=== PATIENT | female | born 1975 | race Caucasian/White ===

== ENCOUNTER 2017-01-10 09:29 | Emergency (ER) | payer BC, MEDICAID, OTHER ==
[2017-01-10 09:47] VITALS: BP 153/82
[2017-01-10] MEDS ORDERED: Sodium Chloride 0.9% 1,000 ML IV ONE (10:46)
--- NOTE | 2017-01-10 12:56 | EDM.PDOC ---
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 This started ten days ago which was shortly after seeing her PCP following a heavy period. Hg was 9.9 at that time and Dimple started her on progesterone. The last 3 days the bleeding has increased. She has gone through 15 large pads in the past 5 days. She is a little lightheaded when she stands up. No fever, some abdominal cramping. She says she is not planning on having any more kids and would consider permanent procedures for this at this point. She doesn't take blood thinners. 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) Lower Abdominal Pain Score (Numeric/FACES): 3 - Related Data Allergies Allergy/AdvReac Type Severity Reaction Status Date / Time Sulfa (Sulfonamide Allergy Nausea Verified 01/10/17 09:47 Antibiotics) sulfamethoxazole Allergy Rash Verified 01/10/17 09:47 [From Bactrim] trimethoprim [From Bactrim] Allergy Rash Verified 01/10/17 09:47 Home Meds: Home Meds Ferrous Sulfate [Iron] 1 tab PO BID 01/10/17 [History] Norethindrone Acetate [Norethindrone AC ([place])] 1 tab PO BEDTIME 01/10/17 [ History] Past Medical History Genitourinary History: Reports: Renal calculus 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: 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, Musculoskeletal History: Reports: None Hematologic History: Reports: Anemia - Infectious Disease History Infectious Disease History: Reports: Chicken pox - Past Surgical History Head Surgeries/Procedures: Reports: None GI Surgical History: Reports: Appendectomy, Cholecystectomy Female Surgical History: Reports: section, Tubal ligation Musculoskeletal Surgical History: Reports: Other (see below) Other Musculoskeletal Surgeries/Procedures:: ankle surgery for torn ligament Dermatological Surgical History: Reports: None Social & Family History - Family History Family Medical History: Noncontributory - Tobacco Use Smoking Status *Q: Current Every Day Smoker Years of Tobacco use: 24 Packs/Tins Daily: 1 Used Tobacco, but Quit: No Second Hand Smoke Exposure: No - Caffeine Use Caffeine Use: Reports: Coffee, Soda - Recreational Drug Use Recreational Drug Use: No ED ROS GENERAL - Review of Systems Review Of Systems: ROS reveals no pertinent complaints other than HPI. ED EXAM, GENERAL - Physical Exam Exam: See Below Exam Limited By: No limitations General Appearance: alert, WD/WN, no apparent distress Eye Exam: bilateral eye: EOMI, normal inspection, PERRL Ears: normal external exam, hearing grossly normal Nose: normal inspection Throat/Mouth: Normal inspection Head: atraumatic, normocephalic Neck: full range of motion Respiratory/Chest: no respiratory distress, lungs clear, normal breath sounds Cardiovascular: regular rate, rhythm, no murmur GI/Abdominal: soft, tender (mildly in middle abdomen) Back Exam: No: CVA tenderness (L), CVA tenderness (R) Extremities: normal inspection, normal range of motion Neurological: alert, oriented, CN II-XII intact, normal cognition, normal gait, no motor/sensory deficits Psychiatric: normal affect, normal mood Skin Exam: Warm, Dry, Intact, Normal color, No rash Course - Vital Signs Last Recorded V/S: Last Vital Signs Temp 98.5 F 01/10/17 09:44 Pulse 76 01/10/17 09:44 Resp 16 01/10/17 09:44 BP 153/82 H 01/10/17 09:44 Pulse Ox 98 01/10/17 09:44 - Orders/Labs/Meds Labs: Laboratory Tests 01/10/17 Range/Units 10:03 WBC 7.2 (5.0-10.0) 10^3/uL RBC 4.85 (3.80-5.50) 10^6/uL Hgb 10.9 L (12.0-16.0) g/dL Hct 34.2 L (37.0-47.0) % MCV 70.5 L (82.0-92.0) fL MCH 22.5 L (27.0-31.0) pg MCHC 31.9 L (32.0-36.0) g/dL RDW 21.3 H (11.5-14.5) % Plt Count 327 H (150-300) 10^3/uL MPV 8.2 (7.4-10.4) fL Neut % (Auto) 62.3 (50.0-70.0) % Lymph % (Auto) 30.0 (20.0-40.0) % [place] % (Auto) 4.9 (2.0-8.0) % Eos % (Auto) 1.8 (1.0-3.0) % Baso % (Auto) 1.0 (0.0-1.0) % Neut # (Auto) 4.4 (2.5-7.0) 10^3/uL Lymph # (Auto) 2.2 (1.0-4.0) 10^3/uL [place] # (Auto) 0.4 (0.1-0.8) 10^3/uL Eos # (Auto) 0.1 (0.1-0.3) 10^3/uL Baso # (Auto) 0.1 (0.0-0.1) 10^3/uL Meds: Medications Discontinued Medications Generic Name Dose Route Start Last Admin Trade Name Freq PRN Reason Stop Dose Admin Sodium Chloride 1,000 mls @ 999 mls/hr 01/10/17 10:46 01/10/17 11:01 Normal Saline IV 01/10/17 11:46 999 mls/hr .BOLUS ONE Administration - Re-Assessments/Exams Free Text/Narrative Re-Assessment/Exam: 01/10/17 12:54 Hg 10.9, gave a liter of fluids and patient is feeling better with resolution of lightheadedness when standing up. Discussed findings and plan, including the urgency of seeing a front desk officer tomorrow or Wednesday at the latest. She would consider an ablation or hysterectomy. Patient discharged in stable condition. Departure - Departure Time of Disposition: 12:51 Disposition: Home, Self-Care 01 Condition: good Clinical Impression: Heavy menstrual bleeding Qualifiers: Menorrahagia type: premenopausal Qualified Code(s): N92.4 - Excessive bleeding in the premenopausal period Forms: ED Department Discharge Additional Instructions: 1. Tomorrow morning call Dimple to get in to see Heating Element Builder tomorrow if at all possible, but for sure by Wednesday. 2. If bleeding increases or you become pale or faint, you should go to [facility].
== END 2017-01-10 13:25 | disposition home or self-care (01) ==
LOC: KA.ED 09:29
DX: N92.4 Excessive bleeding in the premenopausal period (principal); F17.200 Nicotine dependence, unspecified, uncomplicated; Z88.2 Allergy status to sulfonamides; Z88.1 Allergy status to other antibiotic agents
CPT/HCPCS: 36415; 85025; 96360; 96361; 99284; J7030

== ENCOUNTER 2018-07-24 07:58 | Emergency (ER) | payer MEDICAID ==
[2018-07-24 08:13] VITALS: BP 142/88
--- NOTE | 2018-07-24 09:01 | EDM.PDOC ---
ED HPI GENERAL MEDICAL PROBLEM - General Chief Complaint: General Stated Complaint: ABD WOUND DRAINAGE Time Seen by Provider: 07/24/18 08:46 Source of Information: Reports: Patient, Significant Other History Limitations: Reports: No Limitations - History of Present Illness INITIAL COMMENTS - FREE TEXT/NARRATIVE: Patient presents 2 days s/p lap hysterectomy with bloody drainage from the umbilical incision. It hasn't soaked the outer bandage she says but was bleeding out from under the bandaid that is over her umbilicus. Her pain has been manageable and she denies any fevers. She is eating okay and passing stools at least twice daily since surgery. 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) - Related Data Allergies Allergy/AdvReac Type Severity Reaction Status Date / Time Sulfa (Sulfonamide Allergy Nausea Verified 07/24/18 08:13 Antibiotics) sulfamethoxazole Allergy Rash Verified 07/24/18 08:13 [From Bactrim] trimethoprim [From Bactrim] Allergy Rash Verified 07/24/18 08:13 Home Meds: Home Meds Ferrous Sulfate [Iron] 1 tab PO BID 01/10/17 [History] Hydrocodone/Acetaminophen [Hydrocodon-Acetaminophen 5-325] 1 - 2 each PO Q6H PRN 07/24/18 [History] Ibuprofen 600 mg PO Q4H PRN 07/24/18 [History] Past Medical History HEENT History: Reports: Impaired Vision Cardiovascular History: Reports: Hypertension Gastrointestinal History: Reports: Cholelithiasis Genitourinary History: Reports: Renal Calculus 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, , Spontaneous Musculoskeletal History: Reports: Fracture Neurological History: Reports: None Psychiatric History: Reports: None Endocrine/Metabolic History: Reports: Obesity/BMI 30+ Hematologic History: Reports: Anemia - Infectious Disease History Infectious Disease History: Reports: Chicken Pox - Past Surgical History Head Surgeries/Procedures: Reports: None HEENT Surgical History: Reports: Oral Surgery Cardiovascular Surgical History: Reports: None GI Surgical History: Reports: Appendectomy, Cholecystectomy Female Surgical History: Reports: Section, D&C, Endometrial Ablation , Hysterectomy, Salpingo-Oophorectomy, Tubal Ligation, Other (See Below) Other Female Surgeries/Procedures: uterine polyps removed Endocrine Surgical History: Reports: None Neurological Surgical History: Reports: None Musculoskeletal Surgical History: Reports: Other (See Below) Other Musculoskeletal Surgeries/Procedures:: SI joint pain R Dermatological Surgical History: Reports: None Social & Family History - Family History Family Medical History: Noncontributory - Tobacco Use Smoking Status *Q: Current Every Day Smoker Years of Tobacco use: 30 Packs/Tins Daily: 1 Second Hand Smoke Exposure: Yes - Caffeine Use Caffeine Use: Reports: Coffee, Soda - Recreational Drug Use Recreational Drug Use: No ED ROS GENERAL - Review of Systems Review Of Systems: See Below Constitutional: Reports: No Symptoms HEENT: Reports: No Symptoms Respiratory: Reports: No Symptoms Cardiovascular: Reports: No Symptoms GI/Abdominal: Denies: Black Stool, Bloody Stool, Constipation, Diarrhea, Nausea , Vomiting : Reports: No Symptoms Musculoskeletal: Reports: No Symptoms Skin: Reports: No Symptoms Neurological: Reports: No Symptoms Psychiatric: Reports: No Symptoms ED EXAM, GENERAL - Physical Exam Exam: See Below Exam Limited By: No Limitations General Appearance: Alert, WD/WN, No Apparent Distress Eye Exam: Bilateral Eye: EOMI, Normal Inspection, PERRL Ears: Normal External Exam, Hearing Grossly Normal Nose: Normal Inspection, No Blood Throat/Mouth: Normal Inspection, Normal Lips, Normal Voice, No Airway Compromise Head: Atraumatic, Normocephalic Neck: Normal Inspection, Full Range of Motion Respiratory/Chest: No Respiratory Distress, Lungs Clear, Normal Breath Sounds, No Accessory Muscle Use Cardiovascular: Regular Rate, Rhythm, No Murmur GI/Abdominal: Normal Bowel Sounds, Soft, Other (There is a 1.5 cm longitudinal incision in the umbilicus that is draining slightly from the inferior 3 mm portion. No dehiscence, cellulitis or induration. This is steriley blotted dry ; no drainage persisting with watching for a few minutes. It is packed lightly with a folded sterile 2 x 2 cm gauze and covered with a tegaderm. The other two small abdominal incisions have steri strips in place and are not disturbed since there is no drainage or erythema.) Back Exam: Normal Inspection, Full Range of Motion. No: CVA Tenderness (L), CVA Tenderness (R) Extremities: Normal Inspection, Normal Range of Motion Neurological: Alert, Oriented, Normal Cognition, No Motor/Sensory Deficits Psychiatric: Normal Affect, Normal Mood Skin Exam: Warm, Dry, Intact, Normal Color, No Rash Course - Vital Signs Last Recorded V/S: Last Vital Signs Temp 98.7 F 07/24/18 08:10 Pulse 72 07/24/18 08:10 Resp 18 07/24/18 08:10 BP 142/88 H 07/24/18 08:10 Pulse Ox 95 07/24/18 08:10 - Re-Assessments/Exams Free Text/Narrative Re-Assessment/Exam: 07/24/18 09:12 Discussed findings and treatment plan with patient. She is discharged to home in stable condition. Departure - Departure Time of Disposition: 08:55 Disposition: Home, Self-Care 01 Condition: Good Clinical Impression: S/P laparoscopic hysterectomy Draining postoperative wound Qualifiers: Encounter type: initial encounter Qualified Code(s): T81.89XA - Other complications of procedures, not elsewhere classified, initial encounter - Discharge Information Referrals: Dimple Jacinto PA-C [Primary Care Provider] - Additional Instructions: 1. Keep incision clean and dry; you can change the dressing in two days. 2. Follow the post-op instructions from the surgeon. 3. Follow up for recheck if any sign of infection, fever or other problems.
== END 2018-07-24 09:15 | disposition home or self-care (01) ==
LOC: KA.ED 07:58
DX: N99.89 Other postprocedural complications and disorders of genitourinary system (principal); I10 Essential (primary) hypertension; E66.9 Obesity, unspecified; Z88.2 Allergy status to sulfonamides; Z88.8 Allergy status to other drugs, medicaments and biological substances; F17.210 Nicotine dependence, cigarettes, uncomplicated; Z90.710 Acquired absence of both cervix and uterus
CPT/HCPCS: 99283

== ENCOUNTER 2021-06-17 19:45 | Emergency (ER) | payer MEDICAID ==
--- NOTE | 2021-06-17 20:06 | EDM.PDOC ---
ED HPI GENERAL MEDICAL PROBLEM - General Chief Complaint: Lower Extremity Injury/Pain Time Seen by Provider: 06/17/21 20:06 Source of Information: Reports: Patient History Limitations: Reports: No Limitations - History of Present Illness INITIAL COMMENTS - FREE TEXT/NARRATIVE: Clara, 45-year-old female, while walking this evening likely stepped on a stone on a gravel surface causing her to lose her balance rotate ankle and fall. Had immediate swelling and pain and presents here for evaluation. Past history teenager for reconstructive ligament issues of the ankle and has had no noted history of weakness/ankle sprains and/or strains lifelong. No other complaints or concerns from this incident. Onset: Today, Sudden Onset Date: 06/17/21 Onset Time: 19:00 Duration: Minutes:, Constant, Getting Worse Location: Reports: Lower Extremity, Left Quality: Reports: Ache, Burning Severity: Severe Improves with: Reports: None Worsens with: Reports: Movement Context: Reports: Activity Left Ankle Pain Score (Numeric/FACES): 7 - Related Data Allergies Allergy/AdvReac Type Severity Reaction Status Date / Time Sulfa (Sulfonamide Allergy Nausea Verified 06/17/21 20:11 Antibiotics) sulfamethoxazole Allergy Rash Verified 06/17/21 20:11 [From Bactrim] trimethoprim [From Bactrim] Allergy Rash Verified 06/17/21 20:11 Home Meds: Home Meds Docusate Sodium [Colace] 100 mg PO BID PRN #30 cap 08/10/18 [Rx] Nitrofurantoin Monohyd/M-Cryst [Macrobid 100 mg Capsule] 100 mg PO BID #20 capsule 08/10/18 [Rx] lisinopriL [Zestril] 10 mg PO DAILY 08/10/18 [History] methocarbamoL [Robaxin] 500 mg PO TID PRN #15 tab 08/10/18 [Rx] predniSONE [Prednisone] 20 mg PO DAILY #15 tablet 08/10/18 [Rx] Past Medical History HEENT History: Reports: Impaired Vision Cardiovascular History: Reports: Hypertension Gastrointestinal History: Reports: Cholelithiasis Genitourinary History: Reports: Renal Calculus 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, , Spontaneous Musculoskeletal History: Reports: Fracture, Other (See Below) (repetitive ankle issues.) Neurological History: Reports: None Psychiatric History: Reports: None Endocrine/Metabolic History: Reports: Obesity/BMI 30+ Hematologic History: Reports: Anemia - Infectious Disease History Infectious Disease History: Reports: Chicken Pox - Past Surgical History Head Surgeries/Procedures: Reports: None HEENT Surgical History: Reports: Oral Surgery Cardiovascular Surgical History: Reports: None GI Surgical History: Reports: Appendectomy, Cholecystectomy Female Surgical History: Reports: Section, D&C, Endometrial Abl ation, Hysterectomy, Salpingo-Oophorectomy, Tubal Ligation, Other (See Below) Other Female Surgeries/Procedures: uterine polyps removed Endocrine Surgical History: Reports: None Neurological Surgical History: Reports: None Musculoskeletal Surgical History: Reports: Other (See Below) Other Musculoskeletal Surgeries/Procedures:: SI joint pain R Dermatological Surgical History: Reports: None Social & Family History - Family History Family Medical History: No Pertinent Family History - Tobacco Use Tobacco Use Status *Q: Current Every Day Tobacco User - Caffeine Use Caffeine Use: Reports: Coffee, Soda ED ROS GENERAL - Review of Systems Review Of Systems: Comprehensive ROS is negative, except as noted in HPI. ED EXAM, GENERAL - Physical Exam Exam: See Below Free Text/Narrative:: Alert, oriented in no acute distress. HEENT negative discharge deformity there is no evidence of injury to the upper extremities. She moves extremities about with no difficulty other than the left ankle. No injury noted to the clothing nor to the shins bilateral. Right ankle is intact. Swelling to the lateral malleolus with mild tenderness and to the hindfoot laterally. There is no tenderness to the distal fibula. Very minimal inflammation appearance to the medial malleolus. Course - Vital Signs Last Recorded V/S: Last Vital Signs Temp 97.9 F 06/17/21 20:00 Pulse 70 06/17/21 20:00 Resp 18 06/17/21 20:00 BP 145/85 H 06/17/21 20:00 Pulse Ox 95 06/17/21 20:00 - Orders/Labs/Meds Orders: Active Orders 24 hr Category Date Time Status DME for Discharge [COMM] Urgent Oth 06/17/21 20:31 Ordered Departure - Departure Time of Disposition: 20:55 Disposition: Home, Self-Care 01 Condition: Good Clinical Impression: Fracture of fibula - Discharge Information *PRESCRIPTION DRUG MONITORING PROGRAM REVIEWED*: Not Applicable *COPY OF PRESCRIPTION DRUG MONITORING REPORT IN PATIENT MIRA: Not Applicable Instructions: Fibular Fracture Rehab-Sports[facility] Referrals: Nunu Wang NP [Nurse Practitioner] - Forms: ED Department Discharge Additional Instructions: Support will be placed for protection and comfort. Use this at all times that you are on your feet. Elevate and ice as much as possible. Ibuprofen and/or Tylenol may be taken for discomfort and to assist in swelling. Take all of your home medications as directed. Contact your clinic for a follow-up appointment in 7 to 10 days for reassessment. Contact them for sooner evaluation if problems or questions arise. Return to the emergency department if major concerns or further falls would develop. Sepsis Event Note (ED) - Focused Exam Vital Signs: Vital Signs Temp Pulse Resp BP Pulse Ox 06/17/21 20:00 97.9 F 70 18 145/85 H 95 - Problem List & Annotations (1) Ankle pain, left SNOMED Code(s): 251644091, 700385073 Code(s): M25.572 - PAIN IN LEFT ANKLE AND JOINTS OF LEFT FOOT Status: Acute Qualifiers: Chronicity: acute Qualified Code(s): M25.572 - Pain in left ankle and joints of left foot (2) Fracture of fibula SNOMED Code(s): 34267442 Code(s): S82.409A - UNSP FRACTURE OF SHAFT OF UNSP FIBULA, INIT FOR CLOS FX Status: Acute Priority: High Annotation/Comment:: Distal fibula/malleolus tip - Problem List Review Problem List Initiated/Reviewed/Updated: Yes - My Orders Last 24 Hours: My Active Orders 06/17/21 20:31 DME for Discharge [COMM] Urgent - Assessment/Plan Last 24 Hours: My Active Orders 06/17/21 20:31 DME for Discharge [COMM] Urgent Plan: Support will be placed for protection and comfort. Use this at all times that you are on your feet. Elevate and ice as much as possible. Ibuprofen and/or Tylenol may be taken for discomfort and to assist in swelling. Take all of your home medications as directed. Contact your clinic for a follow-up appointment in 7 to 10 days for reassessment. Contact them for sooner evaluation if problems or questions arise. Return to the emergency department if major concerns or further falls would develop.
[2021-06-17 20:18] VITALS: BP 145/85; PULSE 70
--- NOTE | 2021-06-17 20:46 | CR ---
[id number] RAD/RAD Ankle Right 3V Min EXAM: 3 VIEWS LEFT ANKLE. INDICATION: FALL, SWELLING, PAIN COMPARISON: None. DISCUSSION: Acute minimally displaced fracture involving the distal left fibula. No other fractures are identified. The ankle mortise is maintained. Small left ankle joint effusion. Enthesopathic change at the Achilles insertion. IMPRESSION: 1. As above. Kenton Richards DO 06/17/21 Thank you for allowing us to participate in the care of your patient.
== END 2021-06-17 21:00 | disposition home or self-care (01) ==
LOC: KA.ED 19:45
DX: S82.832A Other fracture of upper and lower end of left fibula, initial encounter for closed fracture (principal); I10 Essential (primary) hypertension; E66.9 Obesity, unspecified; Z68.33 Body mass index [BMI] 33.0-33.9, adult; Z88.2 Allergy status to sulfonamides; Z79.899 Other long term (current) drug therapy; W22.8XXA Striking against or struck by other objects, initial encounter
CPT/HCPCS: 73610-LT; 99283; 99283-25